=== PATIENT | male | born 1955 | race Caucasian/White ===

== ENCOUNTER → 2020-03-28 | Outpatient (REF) | payer OTHER ==
[2020-03-28 18:47] LABS: HEPATITIS B CORE ANTIBODY IGM NEGATIVE (NEGATIVE); HEPATITIS B SURFACE ANTIBODY NEGATIVE (POSITIVE); HEPATITIS B SURFACE ANTIGEN NEGATIVE (NEGATIVE); HEPATITIS C VIRUS ABY INDEX 0.3 INDEX (<0.8)
[2020-03-31 16:08] LABS: ALPHA 1 ANTITRYPSIN 112 mg/dL (101-187); ANTI-MITOCHONDRIAL ANTIBODY <20.0 Units (0.0-20.0); ANTI-SMOOTH MUSCLE ANTIBODY 6 Units (0-19); ANTINUCLEAR ANTIBODIES DIRECT Negative (Negative)
== END ==
LOC: M LAB REF 17:12
PROVIDERS: ATTEND Internal Medicine Nephrology
DX: R94.5 Abnormal results of liver function studies (principal)

== ENCOUNTER → 2020-04-14 | Outpatient (CLI) | payer OTHER ==
--- NOTE | 2020-05-02 13:25 | REP ---
COMPELTE ABDOMINAL ULTRASOUND CLINICAL: Elevated liver function tests. TECHNIQUE: Real-time crisostomo scale ultrasound examination using curved array transducer. FINDINGS: The liver demonstrates coarsened echotexture with increased echogenicity suggesting fatty infiltration and/or hepatocellular disease. No focal hepatic lesion identified. The pancreas is incompletely evaluated due to interposed bowel gas, but visualized portions appear normal. The spleen is normal in size without focal splenic lesion identified and measures 13.8 x 7.9 x 4.2 cm. The gallbladder is normal and without gallstones, wall thickening, or pericholecystic fluid. No biliary ductal dilatation is appreciated and the common bile duct measures 2.3 mm in diameter. The bilateral kidneys are normal in reniform shape without hydronephrosis. Right kidney measures 10.4 x 5.2 x 4.5 cm. Left kidney measures 11.2 x 4.8 x 5.1 cm and includes a 1 cm mid pole cyst. The abdominal aorta is incompletely evaluated due to interposed bowel gas, but measures up to 2.0 cm maximal diameter. No ascites. IMPRESSION: * Findings suggest fatty infiltration and/or hepatocellular disease without focal hepatic lesion identified. * Incidental 1 cm left renal cyst. MTDD
== END ==
LOC: M RAD 08:10
PROVIDERS: ATTEND Internal Medicine Nephrology
DX: N18.2 Chronic kidney disease, stage 2 (mild) (principal); R94.5 Abnormal results of liver function studies; E78.2 Mixed hyperlipidemia; N28.1 Cyst of kidney, acquired

== ENCOUNTER → 2020-05-02 | Outpatient (REF) | payer OTHER ==
[2020-05-07 04:11] LABS: CERULOPLASMIN 15.1 mg/dL (16.0-31.0)
== END ==
LOC: M LAB REF 17:08
PROVIDERS: ATTEND Internal Medicine Nephrology
DX: K76.9 Liver disease, unspecified (principal)

== ENCOUNTER → 2020-06-13 | Outpatient (REF) | payer OTHER | LOC: M LAB REF 09:30 | PROVIDERS: ATTEND Dermatology | DX: C44.310 Basal cell carcinoma of skin of unspecified parts of face (principal) ==

== ENCOUNTER → 2024-11-14 | Outpatient (REF) | payer MEDICARE ==
[2024-11-14 18:50] LABS: BACTERIA, URINE AUTO NEGATIVE (NEGATIVE); MUCUS, URINE SMALL (NEGATIVE); RBC, URINE AUTO 2 /HPF (0-3); SQUAMOUS EPITHELIAL CELL UR AU 0 /HPF (0-6); WBC, URINE AUTO 0 /HPF (0-3)
== END ==
LOC: M LAB REF 17:09
PROVIDERS: ATTEND Nurse Practitioner Family
DX: R31.29 Other microscopic hematuria (principal)